=== PATIENT | female | born 1985 | race African-American/Black ===

== ENCOUNTER 2019-01-29 09:29 | Emergency (ER) | payer OTHER ==
[~2019-01-29] VITALS: Ht 162.6 cm; Wt 113.4 kg
--- NOTE | 2019-01-29 10:00 | NUR ---
patient was seen by . urine sent to lab
[2019-01-29 10:06] LABS: *BILIRUBIN,URIN NEGATIVE (NEGATIVE); *BLOOD, URINE NEGATIVE (NEGATIVE); *CLARITY,URINE SLIGHTLY CLOUDY (CLEAR); *COLOR,URINE YELLOW (YELLOW); *KETONES,URINE NEGATIVE (NEGATIVE); *UROBILINOGEN,URINE 0.2 E.U./dl (NORMAL); LEUKOCYTE ESTERASE ,URINE 1+ (NEGATIVE); NITRITE, URINE NEGATIVE (NEGATIVE); UGLUCOSE NEGATIVE (NEGATIVE)
[2019-01-29 10:09] LABS: *URINE HCG, QUAL NEGATIVE (NEGATIVE)
[2019-01-29 10:13] LABS: BACTERIA,URINE FEW /HPF (NONE SEEN); RBC,URINE NONE SEEN /HPF (0-3); SQUAMOUS EPITHELIAL CELL,UR MODERATE /HPF (NONE SEEN); WBC,URINE 0-3 /HPF (0-3)
[2019-01-29] MEDS ORDERED: NAPROXEN 500 MG TABLET PO ONE (10:15)
[2019-01-29] MEDS ORDERED: NAPROXEN 500 MG TABLET ONE (10:22)
--- NOTE | 2019-01-29 10:22 | NUR ---
DC, RX AND FOLLOW UP INSTRUCTIONS GIVEN AND EXPLAINED TO PATIENT WHO STATES SHE UNDERSTANDS ALL INSTRUCTIONS.
== END 2019-01-29 10:24 | disposition home or self-care (01) ==
LOC: ER 09:29
DX: M54.5 Low back pain (principal); Z88.0 Allergy status to penicillin
CPT/HCPCS: 84703; 87077; 87086; A4663